=== PATIENT | male | born 1975 | race Two or more races ===

== ENCOUNTER 2019-12-24 23:18 | Emergency (ER) | payer OTHER ==
[2019-12-24 23:27] VITALS: TEMP 98.3; BMI 32.5
--- NOTE | 2019-12-25 00:21 | PDOC ---
History of Present Illness - General Chief Complaint: Laceration Stated Complaint: BLEEDING FROM HIS TONGUE Time Seen by Provider: 12/25/19 00:20 History Source: Patient Exam Limitations: No Limitations - History of Present Illness Initial Comments: 12/25/19 01:29 44yM w PMHx DM presenting w 4d bleeding from 0.5cm blister underneath L distal tongue. Tried water/baking soda w/o relief. Denies anticoagulant or aspirin use. Scheduled PCP appointment tomorrow. Denies nausea/vomiting, fevers/chills, trouble breathing, tongue pain Past History - Past Medical History Allergies/Adverse Reactions: Allergies Allergy/AdvReac Type Severity Reaction Status Date / Time No Known Allergies Allergy Verified 12/24/19 23:27 COPD: No Diabetes: Yes - Psycho Social/Smoking Cessation Hx Smoking History: Never smoked Review of Systems - Review of Systems Constitutional: No: Chills, Fever HEENTM: No: Eye Pain, Nose Pain, Nose Congestion, Throat Pain, Throat Swelling Respiratory: No: Cough, Shortness of Breath Cardiac (ROS): No: Chest Pain, Palpitations ABD/GI: No: Abdominal Distended, Constipated, Diarrhea : No: Burning, Dysuria Musculoskeletal: No: Back Pain, Joint Pain Integumentary: No: Bruising, Flushing Neurological: No: Headache, Seizure Psychiatric: No: Anxiety, Depression Endocrine: No: Intolerance to Cold, Intolerance to Heat Hematologic/Lymphatic: No: Anemia, Easy Bleeding *Physical Exam - Vital Signs Last Vital Signs Temp Pulse Resp BP Pulse Ox 98.3 F 115 H 18 152/107 H 98 12/24/19 23:25 12/24/19 23:25 12/24/19 23:25 12/24/19 23:25 12/24/19 23:25 - Physical Exam General Appearance: Yes: Nourished, Appropriately Dressed, Mild Distress HEENT: positive: EOMI, ELSI, Normal Voice, Hearing Grossly Normal, Other (0.5cm oozing blister under L tongue). negative: Scleral Icterus (R), Scleral Icterus (L) Respiratory/Chest: positive: Lungs Clear, Normal Breath Sounds. negative: Chest Tender, Respiratory Distress Cardiovascular: positive: Regular Rhythm, Regular Rate, S1, S2. negative: Edema , Murmur Gastrointestinal/Abdominal: positive: Normal Bowel Sounds, Flat, Soft. negative : Tender, Organomegaly Integumentary: positive: Normal Color. negative: Dry Neurologic: positive: Fully Oriented, Alert, Normal Mood/Affect, Normal Response , Responsive. negative: Confused, Disoriented Medical Decision Making - Medical Decision Making 12/25/19 01:31 44yM w PMHx DM presenting w 4d bleeding from 0.5cm blister underneath L distal tongue. Bleeding stopped w gauze pressure. Low concern for infection (not febrile, blister not tender). DC w dentist f/u Discharge - Discharge Information Problems reviewed: Yes Clinical Impression/Diagnosis: Tongue abnormality Condition: Good Disposition: HOME - Follow up/Referral Referrals: ON STAFF,NOT [Primary Care Provider] - - Patient Discharge Instructions Additional Instructions: Apply pressure with paper towels over wound for 10 minutes if bleeding. Follow up with your dentist - Post Discharge Activity
[2019-12-25 02:11] VITALS: BP 130/77; PULSE 90
--- NOTE | 2019-12-25 04:11 | PDOC ---
Attending Attestation - Resident Resident Name: CelinaHernan - ED Attending Attestation I have performed the following: I have examined & evaluated the patient, The case was reviewed & discussed with the resident, I agree w/resident's findings & plan, Exceptions are as noted - HPI HPI: 12/31/19 20:47 See resident HPI - Physicial Exam PE: 12/31/19 20:47 Agree with exam as documented by resident - Medical Decision Making 12/31/19 20:47 cc bleeding from an intra oral lesion that will not stop, hemostatic on exam after direct pressure dc
== END 2019-12-25 02:11 | disposition home or self-care (01) ==
LOC: JER 23:18
DX: K14.8 Other diseases of tongue (principal); S00.522A Blister (nonthermal) of oral cavity, initial encounter; X58.XXXA Exposure to other specified factors, initial encounter; Y93.89 Activity, other specified; Y92.89 Other specified places as the place of occurrence of the external cause; Y99.8 Other external cause status
CPT/HCPCS: 99281-25